=== PATIENT | female | born 1960 | race Two or more races ===

== ENCOUNTER 2018-06-21 11:08 | Emergency (ER) | payer OTHER ==
[2018-06-21 11:17] VITALS: BP 116/66; PULSE 89; TEMP 98.4; BMI 33.2
--- NOTE | 2018-06-21 11:27 | PDOC ---
History of Present Illness - General History Source: Patient - History of Present Illness Timing/Duration: reports: other Location: reports: extremities, torso <Willie Luis - Last Filed: 06/21/18 11:28> <Zeinab Barba - Last Filed: 06/21/18 14:08> - General Chief Complaint: Rash Stated Complaint: ALLERGIC REACTION Time Seen by Provider: 06/21/18 11:21 Past History - Past Medical History Anemia: Yes Asthma: Yes Cancer: No Cardiac Disorders: No CVA: No COPD: No CHF: No Dementia: No Diabetes: No GI Disorders: No Disorders: No HTN: Yes Hypercholesterolemia: No Liver Disease: Yes (cirrhosis w/ esophageal varices) Seizures: No Thyroid Disease: Yes - Surgical History Abdominal Surgery: No Appendectomy: No Cardiac Surgery: No Cholecystectomy: No Lung Surgery: No Neurologic Surgery: No Orthopedic Surgery: No - Suicide/Smoking/Psychosocial Hx Smoking Status: Yes Smoking History: Never smoked Have you smoked in the past 12 months: No Number of Cigarettes Smoked Daily: 0 If you are a former smoker, when did you quit?: Approximately 5 years ago. Cigars Per Day: 0 Hx Alcohol Use: No Drug/Substance Use Hx: No Substance Use Type: None Hx Substance Use Treatment: No <Willie Luis - Last Filed: 06/21/18 11:28> <Zeinab Barba - Last Filed: 06/21/18 14:08> - Past Medical History Allergies/Adverse Reactions: Allergies Allergy/AdvReac Type Severity Reaction Status Date / Time amoxicillin Allergy Rash Verified 06/21/18 13:35 Home Medications: Ambulatory Orders Albuterol 0.083% Nebulizer Meredith [Ventolin 0.083% Nebulizer Soln -] 1 neb NEB Q6H PRN #120 vial 07/23/17 Beclomethasone Dipropionate [Qvar] 1 puff IH BID #1 aer.w.adap 01/21/18 Carboxymethylcellulose Sodium [Lubricant Eye Drop] 1 drop OU PRN #15 drops 01/21 Sodium Chloride [Saline Nasal [place]] 1 - 2 spray NS PRN #1 spray 01/21/18 Ergocalciferol [Vitamin D2] 50,000 unit PO Q7D #4 capsule 02/20/18 Albuterol Sulfate Inhaler - [Ventolin HFA Inhaler -] 1 - 2 inh PO QID PRN #1 inhaler 05/07/18 Albuterol Sulfate Inhaler - [Ventolin Hfa Inhaler -] 2 inh PO Q6H PRN 05/07/18 Eltrombopag Olamine [Promacta] 25 mg PO DAILY 05/07/18 Spironolactone [Aldactone -] 25 mg PO DAILY #30 tablet 05/07/18 Sulfamethoxazole/Trimethoprim [Bactrim Ds -] 1 tab PO WEEKLY 05/07/18 Valacyclovir HCl [Valtrex -] 500 mg PO BID #14 tablet 05/24/18 Bictegrav/Emtricit/Tenofov Ala [Biktarvy 50-200-25 mg Tablet] 1 each PO DAILY # 30 tablet 05/28/18 Amox-Tr/K Cl [Augmentin - 875Mg Tablet] 1 tab PO BID #14 tablet 06/19/18 Fluticasone Prop 0.05% Nasal [Flonase -] 1 - 2 spray NS DAILY #1 spray.pump Loratadine [Claritin -] 10 mg PO Q48H PRN #15 tablet 06/19/18 Azithromycin [Zithromax 250mg Tablets -] 1 tab PO DAILY #6 tab 06/21/18 Loratadine [Claritin] 10 mg PO DAILY #20 tablet 06/21/18 Prednisone [Deltasone] 20 mg PO ASDIR #11 tablet 06/21/18 Review of Systems - Review of Systems Constitutional: No: Chills, Fever HEENTM: No: Throat Swelling Respiratory: No: Shortness of Breath, Wheezing Integumentary: Yes: Pruritus, Rash <Willie Luis - Last Filed: 06/21/18 11:28> *Physical Exam - Vital Signs Last Vital Signs Temp Pulse Resp BP Pulse Ox 98.4 F 89 18 116/66 97 06/21/18 11:12 06/21/18 11:12 06/21/18 11:12 06/21/18 11:12 06/21/18 11:12 - Physical Exam General Appearance: Yes: Appropriately Dressed. No: Apparent Distress HEENT: positive: Normal Voice Neck: positive: Supple. negative: Stridor Respiratory/Chest: negative: Respiratory Distress, Wheezing Integumentary: positive: Dry, Warm, Rash (multiple erythematous papules to trunk and LEs c/w hives) Neurologic: positive: Fully Oriented, Alert, Normal Mood/Affect <Willie Luis - Last Filed: 06/21/18 11:28> - Vital Signs Last Vital Signs Temp Pulse Resp BP Pulse Ox 98.4 F 89 18 116/66 97 06/21/18 11:12 06/21/18 11:12 06/21/18 11:12 06/21/18 11:12 06/21/18 11:12 <Zeinab Barba - Last Filed: 06/21/18 14:08> Moderate Sedation - Procedure Monitoring Vital Signs: Procedure Monitoring Vital Signs Temperature 98.4 F 06/21/18 11:12 Pulse Rate 89 06/21/18 11:12 Respiratory Rate 18 06/21/18 11:12 Blood Pressure 116/66 06/21/18 11:12 O2 Sat by Pulse Oximetry (%) 97 06/21/18 11:12 <Willie Luis - Last Filed: 06/21/18 11:28> - Procedure Monitoring Vital Signs: Procedure Monitoring Vital Signs Temperature 98.4 F 06/21/18 11:12 Pulse Rate 89 06/21/18 11:12 Respiratory Rate 18 06/21/18 11:12 Blood Pressure 116/66 06/21/18 11:12 O2 Sat by Pulse Oximetry (%) 97 06/21/18 11:12 <Zeinab Barba - Last Filed: 06/21/18 14:08> Medical Decision Making - Medical Decision Making 06/21/18 11:35 57-year-old female, history of HIV/AIDS on meds, here with pruritic rash 3 days. Rash located to trunk and lower extremities. Taking benadryl with no relief. Denies any obvious inciting factors and no known environmental drug or food allergies. No shortness of breath, lip or throat swelling. No history of similar rash. No history of anaphylactic See exam Hives No obvious inciting factor per hx No resp sxs Not improving w/ benadryl -dc w/ claritin and prednisone taper -derm f/u as needed <Willie Luis - Last Filed: 06/21/18 11:28> - Medical Decision Making The patient was seen and evaluated in conjunction with midlevel provider under my direct supervision, ancillary studies were reviewed. I agree with the plan as outlined by BLAKE Luis. HPI, workup/dispo as outlined. 06/21/18 14:08 <Zeinab Barba - Last Filed: 06/21/18 14:08> *DC/Admit/Observation/Transfer <Willie Luis - Last Filed: 06/21/18 11:28> <Zeinab Barba - Last Filed: 06/21/18 14:08> Diagnosis at time of Disposition: Hives - Discharge Dispostion Disposition: HOME Condition at time of disposition: Good - Prescriptions Prescriptions: Azithromycin [Zithromax 250mg Tablets -] 1 tab PO DAILY #6 tab Loratadine [Claritin] 10 mg PO DAILY #20 tablet Prednisone [Deltasone] 20 mg PO ASDIR #11 tablet - Referrals Referrals: Hannah Horta MD [Staff Physician] - - Patient Instructions Printed Discharge Instructions: Hives Additional Instructions: Your rash appears to be hives at this time. Take medications as directed. If symptoms persist, please follow-up with Dr. Horta of dermatology
== END 2018-06-21 11:40 | disposition home or self-care (01) ==
LOC: JER 11:08
DX: B20 Human immunodeficiency virus [HIV] disease (principal); L50.9 Urticaria, unspecified; J45.909 Unspecified asthma, uncomplicated; I10 Essential (primary) hypertension; E78.00 Pure hypercholesterolemia, unspecified; K74.60 Unspecified cirrhosis of liver
CPT/HCPCS: 99282-25

== ENCOUNTER 2018-07-16 09:19 | Day surgery (SDC) | payer OTHER ==
[2018-07-16 10:06] VITALS: BMI 33.2
[2018-07-16 10:40] VITALS: TEMP 97.6
[2018-07-16 11:32] VITALS: BP 106/73; PULSE 73
== END 2018-07-16 11:36 | disposition home or self-care (01) ==
LOC: JASU-ENDO 09:19
PROVIDERS: ATTEND Internal Medicine Gastroenterology
PROC: 0DJ08ZZ Inspection of Upper Intestinal Tract, Via Natural or Artificial Opening Endoscopic (ICD-10-PCS; principal; 2018-07-16 10:15)
DX: Z13.810 Encounter for screening for upper gastrointestinal disorder (principal); K74.60 Unspecified cirrhosis of liver; I85.00 Esophageal varices without bleeding; F10.21 Alcohol dependence, in remission; K76.6 Portal hypertension

== ENCOUNTER → 2018-12-04 | Outpatient (CLI) | payer OTHER | LOC: YHH 14:35 ==

== ENCOUNTER 2019-01-02 10:22 | Emergency (ER) | payer OTHER ==
[2019-01-02 10:37] VITALS: TEMP 97.4; BMI 33.2
[2019-01-02] MEDS ORDERED: ONDANSETRON *ODT* 4 MG TABLET SL ONE (11:15)
[2019-01-02] MEDS ORDERED: ACETAMINOPHEN 325 MG TABLET (FP) PO ONE (11:15)
[2019-01-02 11:32] LABS: ALBUMIN 3.5 g/dl (3.4-5.0); BILIRUBIN,TOTAL 1.9 mg/dL (0.2-1); BLOOD UREA NITROGEN 15.5 mg/dL (7-18); CALCIUM 8.8 mg/dL (8.5-10.1); CREATININE 0.9 mg/dL (0.55-1.3); POTASSIUM 3.7 mmol/L (3.5-5.1); TOT PROT 7.4 g/dl (6.4-8.2)
--- NOTE | 2019-01-02 11:36 | PDOC ---
Documentation entered by Ameena Ruiz SCRIBE, acting as scribe for Zeinab Barba MD. Zeinab Barba MD: This documentation has been prepared by the Joseph lind Adrianna, SCRIBE, under my direction and personally reviewed by me in its entirety. I confirm that the documentation accurately reflects all work, treatment, procedures, and medical decision making performed by me. History of Present Illness - General Chief Complaint: Lightheaded Stated Complaint: Syncope/Near Syncope Time Seen by Provider: 01/02/19 10:42 History Source: Patient, Family Exam Limitations: No Limitations - History of Present Illness Initial Comments: 58 y.o. female with HIV (well-controlled, adherent with Biktarvy), Hepatitis C, HTN, asthma, anemia, cirrhosis, varices, and hypothyroid, presenting s/p near syncopal episode. Patient was in the main lobby of [facility] after completing an abdominal MRI when she felt very dizzy and hit the back of her head when she fell back. Patient was NPO since last night for her exam since about midnight, and reported feeling lightheaded and dizzy following her MRI imaging in radiology department. She notes the room began spinning, and she felt like she was going to pass out (patient can recall the event). She presents with a laceration to the back of the head, dressing in place. Patient endorses occipital pain, headache, nausea, and vomit secondary to falling and hitting her head. She denies any other acute complaints at this time. Patient is not on any blood thinners at this time, and is up to date with her tetanus vaccination. Denies fever, chills, chest pain, SOB, palpitation,weakness, diarrhea, abdominal pain, bladder and bowel problems, leg swelling, paresthesias, leg pain. Allergies: Amoxicillin Past Medical History/PSH: HIV, Hepatitis C, HTN, asthma, anemia Social history: Lives with family. Former smoker (quit 5 years ago). No ETOH or drug use. Meds: as documented in EMR Family history: noncontributory 01/02/19 11:35 Past History - Past Medical History Allergies/Adverse Reactions: Allergies Allergy/AdvReac Type Severity Reaction Status Date / Time amoxicillin Allergy Rash Verified 06/21/18 13:35 Home Medications: Ambulatory Orders Eltrombopag Olamine [Promacta] 50 mg PO DAILY 08/05/18 Guaifenesin Dm [Robitussin Dm -] 10 ml PO Q4H PRN #240 ml 09/20/18 Albuterol 0.083% Nebulizer Meredith [Ventolin 0.083% Nebulizer Soln -] 1 neb NEB Q6H PRN #120 amp 12/24/18 Beclomethasone Dipropionate [Qvar] 1 puff IH BID #1 aer.w.adap 12/24/18 Bictegrav/Emtricit/Tenofov Ala [Biktarvy 50-200-25 mg Tablet] 1 each PO DAILY # 30 tablet 12/24/18 Carboxymethylcellulose Sodium [Thera Tears] 1 - 2 drop OU PRN #15 ml 12/24/18 Cholecalciferol (Vitamin D3) [Vitamin D3] 2,000 unit PO DAILY #30 capsule Fluticasone Prop 0.05% Nasal [Flonase -] 1 - 2 spray NS DAILY #1 spray.pump Furosemide 20 mg PO DAILY #30 tablet 12/24/18 Ketotifen Fumarate [Zaditor] 1 drop OU BID #5 ml 12/24/18 Loratadine [Claritin -] 10 mg PO Q2D #15 tablet 12/24/18 Multivitamin,Ther and Minerals [Vitamin and Minerals] 1 each PO DAILY #30 tablet 12/24/18 Sodium Chloride [Saline Nasal [place]] 1 - 2 spray NS PRN #1 spray 12/24/18 Spironolactone [Aldactone -] 25 mg PO DAILY #30 tablet 12/24/18 Sulfamethoxazole/Trimethoprim [Bactrim Ds -] 1 tab PO WEEKLY #12 tablet Anemia: Yes Asthma: Yes Cancer: No Cardiac Disorders: No CVA: No COPD: No CHF: No Dementia: No Diabetes: No GI Disorders: Yes (HEP C) Disorders: No HTN: Yes Hypercholesterolemia: No Liver Disease: Yes (H/O VARICES, HCV CIRRHOSIS) Seizures: No Thyroid Disease: Yes - Surgical History Abdominal Surgery: No Appendectomy: No Cardiac Surgery: No Cholecystectomy: No Lung Surgery: No Neurologic Surgery: No Orthopedic Surgery: No - Psycho Social/Smoking Cessation Hx Smoking Status: Yes Smoking History: Former smoker Have you smoked in the past 12 months: No Number of Cigarettes Smoked Daily: 0 If you are a former smoker, when did you quit?: Approximately 5 years ago. Cigars Per Day: 0 Information on smoking cessation initiated: No Hx Alcohol Use: No Drug/Substance Use Hx: No Substance Use Type: None Hx Substance Use Treatment: No Review of Systems - Review of Systems Comments:: Constitutional: no fevers or chills. No weakness HEENT: +Occipital pain. +Headache. +Dizziness. +Lightheadedness. No congestion. No visual/hearing disturbances. CVS: no chest pain, no palpitations. Resp: no sob. No cough. Gastrointestinal: +Nausea. +Vomit. no abdominal pain. Genitourinary: no urinary sx, hematuria. MUSCULOSKELETAL: No joint pain and swelling. No neck or back pain. SKIN: no redness or skin changes, no discharge, no rash. +scalp wound/laceration Hematologic: no easy bruising/bleeding. NEUROLOGIC: +Headache. +Dizziness. +Lightheadedness. +Occipital pain/headache. No altered mental status. No weakness, numbness or tingling. Psych: no anxiety or depression Allergic/Immunologic: no allergies All other systems reviewed and negative, or as documented in HPI. 01/02/19 11:37 01/02/19 11:37 *Physical Exam - Vital Signs Last Vital Signs Temp Pulse Resp BP Pulse Ox 97.4 F L 89 20 127/81 97 01/02/19 10:31 01/02/19 10:31 01/02/19 10:31 01/02/19 10:31 01/02/19 10:31 - Physical Exam Comments: General: GCS 15 NAD, well appearing HEENT: normocephalic, +occipital scalp laceration measuring 3cm, contused tissue and irregular PERRL, EOMI. Airway intact. No battles sign or raccoon eyes. No e/o ocular. Dentition intact. No e/o septal hematoma, nasal bridge stable. Neck: neck supple, no midline C spine tenderness or deformity, ROM intact. No anterior mass or crepitus, trachea midline. Resp: Lungs clear bilaterally Chest: no clavicle or chest wall tenderness or crepitus CVS: RRR, 2+ pulses throughout. Abdomen: Abdomen soft, nontender, nondistended. Back: Back nontender, no midline spinal tenderness along cervical/thoracic/ lumbar spine, FROM, no stepoffs. MSK: Pelvis stable, Extremities symmetric, no focal areas of tenderness or deformities, proximal and distally; no pain on axial loading. FROM in all extrem. Neuro: Alert, oriented appropriately. CN II-XII grossly symmetric and intact. no focal neuro deficits. Sensation and strength intact throughout. Gait normal/ stable. Skin: intact, normal color and well perfused. 01/02/19 11:38 01/02/19 12:23 Procedures - Laceration/Wound Repair Occipital Wound Length: 2.6 to 5.0 cm Wound Explored: clean Wound's Depth, Shape: irregular, contused tissue Irrigated w/ Saline: Yes Betadine Prep: No Anesthesia: 1% Lidocaine Amount of Anesthetic (ccs): 4 Wound Debrided: minimal Wound Repaired With: [place] Number of Sutures: 5 Layer Closure: No Sterile Dressing Applied: No Progress: 01/02/19 12:21 uncomplicated, bleeding controlled Heart Score/ECG Review #1 ECG reviewed & interpreted by me at: 10:45 General ECG Interpretation: Sinus Rhythm, Normal Rate, Normal Intervals 01/02/19 11:37 nonspecific T wave abnormalities ED Treatment Course - LABORATORY CBC & Chemistry Diagram: 01/02/19 11:00 01/02/19 11:00 - ADDITIONAL ORDERS Additional order review: Laboratory Results 01/02/19 11:00 Sodium 143 Potassium 3.7 Chloride 110 H Carbon Dioxide 24 Anion Gap 9 BUN 15.5 Creatinine 0.9 Est GFR (CKD-EPI)AfAm 82.84 Est GFR (CKD-EPI)NonAf 71.48 Random Glucose 118 H Calcium 8.8 Total Bilirubin 1.9 H AST 39 H ALT 24 Alkaline Phosphatase 112 Total Protein 7.4 Albumin 3.5 - RADIOLOGY Radiology Studies Ordered: Category Date Time Status HEAD CT WITHOUT CONTRAST [CT] Stat CT Scan 01/02/19 10:46 Taken Radiograph Interpretation: EXAM#: TYPE/EXAM: RESULT: [id number] CT/HEAD CT WITHOUT CONTRAST Status post injury. Impression: [id number] volume loss without gross CT evidence of acute intracranial pathology. Correlate clinically to determine further evaluation and follow-up. Reported By: Maldonado De La Vega MD 01/02/19 11:50 Medical Decision Making - Medical Decision Making 01/02/19 11:38 Vital Signs Temp Pulse Resp BP Pulse Ox 97.4 F L 89 20 127/81 97 01/02/19 10:31 01/02/19 10:31 01/02/19 10:31 01/02/19 10:31 01/02/19 10:31 vitals reviewed, wnl GCS [address] head_neg for intracranial bleed/skull fx. no midline tenderness,nexus clear no indication for imaging no syncope, EKG unremarkable, nonspecific T wave abnormalities, NSR labs and lytes at baseline, unremarkable, baseline with leukopenia and controlled HIV/CD4 count. tdap is up to date scalp laceration fixed. 5 karyna uncomplicated, bleeding controlled wound care instructions, care, ice the area of swelling supportive care staple removal in 7 days. 01/02/19 11:38 01/02/19 12:22 Discharge - Discharge Information Problems reviewed: Yes Clinical Impression/Diagnosis: Closed head injury Qualifiers: Encounter type: initial encounter Qualified Code(s): S09.90XA - Unspecified injury of head, initial encounter Scalp laceration Qualifiers: Encounter type: initial encounter Qualified Code(s): S01.01XA - Laceration without foreign body of scalp, initial encounter Scalp hematoma Qualifiers: Encounter type: initial encounter Qualified Code(s): S00.03XA - Contusion of scalp, initial encounter Condition: Improved Disposition: HOME - Admission No - Follow up/Referral Referrals: Merline Mcclain, GLASS CRUSHER [Nurse Practitioner] - Emergency Dept,Physician, MD [Emergency Physician] - - Patient Discharge Instructions Patient Printed Discharge Instructions: DI for Laceration Repair of the Scalp, DI for Closed Head Injury Additional Instructions: CT head was negative for internal bleeding or mass labs are within normal limits for you. Wound dressed with topical Bacitracin and sterile gauze. Follow up with your primary care doctor within 48-72 hours for a wound check. Keep karyna covered and dry for 24 hours then clean with soap and water daily - do not scrub. Apply bacitracin or neosporin twice a day with warm soaks and cover with gauze/ dressings. Return to ED for staple removal 7 days. Return to the ED for any worsening pain, redness, streaking (red lines), swelling, fever or chills. Keep the wound clean and as dry as possible, you can also ice the area to reduce swelling. Do not immerse or soak the wound in water. This means no swimming, washing dishes (unless thick rubber gloves are used), baths, or hot tubs until the stitches are removed or after about two weeks if absorbable suture material was used. Leave original bandages on the wound for the first 24 hours. After this time, showering or rinsing is recommended, rather than bathing. the first day, remove old bandages and gently cleanse the wound with soap and water. Cleansing twice a day prevents buildup of debris and will result in easier suture removal. - Post Discharge Activity
[2019-01-02] MEDS ORDERED: ONDANSETRON *ODT* 4 MG TABLET ONE (11:39)
[2019-01-02] MEDS ORDERED: ACETAMINOPHEN 325 MG TABLET (FP) ONE (11:39)
[2019-01-02 12:17] LABS: BASO % 0.7 % (0-2.0); EOS % 3.9 % (0-4.5); HEMATOCRIT 45.6 % (32.4-45.2); HEMOGLOBIN 15.3 GM/dL (10.7-15.3); LYMPH % 39.3 % (8-40); MCH 31.9 pg (25.7-33.7); MCHC 33.6 g/dl (32.0-36.0); MEAN PLT VOLUME 8.8 fl (7.5-11.1); MONO % 7.3 % (3.8-10.2); NEUT % 48.8 % (42.8-82.8); PLATELET COUNT 131 K/MM3 (134-434); RDW 14.7 % (11.6-15.6); WHITE BLOOD COUNT 3.4 K/mm3 (4.0-10.0)
[2019-01-02 12:46] VITALS: BP 118/83; PULSE 75
--- NOTE | 2019-01-02 14:32 | EKG ---
Test Reason : Blood Pressure : / mmHG Vent. Rate : 086 BPM Atrial Rate : 086 BPM P-R Int : 148 ms QRS Dur : 088 ms QT Int : 424 ms P-R-T Axes : 047 029 045 degrees QTc Int : 507 ms POOR DATA QUALITY, INTERPRETATION MAY BE ADVERSELY AFFECTED NORMAL SINUS RHYTHM NORMAL ECG WHEN COMPARED WITH ECG OF 20-AUG-2018 12:43, NO SIGNIFICANT CHANGE WAS FOUND Confirmed by EMMANUEL MARIE, RUBIN ([id number]) on 01/02/2019 2:31:57 PM Referred By: Confirmed By:RUBIN BENITEZ MD
== END 2019-01-02 12:46 | disposition home or self-care (01) ==
LOC: JER 10:22
PROC: 0HQ0XZZ Repair Scalp Skin, External Approach (ICD-10-PCS; principal; 2019-01-02)
DX: S01.01XA Laceration without foreign body of scalp, initial encounter (principal); S09.90XA Unspecified injury of head, initial encounter; X58.XXXA Exposure to other specified factors, initial encounter; Y93.89 Activity, other specified; Y92.89 Other specified places as the place of occurrence of the external cause; Z88.8 Allergy status to other drugs, medicaments and biological substances; Z87.891 Personal history of nicotine dependence; B19.20 Unspecified viral hepatitis C without hepatic coma; I10 Essential (primary) hypertension; I83.90 Asymptomatic varicose veins of unspecified lower extremity; J45.909 Unspecified asthma, uncomplicated; D64.9 Anemia, unspecified
CPT/HCPCS: 36415; 70450-TC; 80053; 85025; 93005; 93010; 99283-25; Q0162

== ENCOUNTER 2019-01-09 06:40 | Emergency (ER) | payer OTHER ==
[2019-01-09 07:23] VITALS: BP 123/72; PULSE 70; TEMP 98.5; BMI 33.2
--- NOTE | 2019-01-09 07:40 | PDOC ---
Suture Removal/Wound Check HPI - History of Present Illness History Source: Yes: Patient Exam Limitations: Yes: Clinical Condition Treated at: [facility] ED <Dario Morataya - Last Filed: 01/09/19 08:02> <Randy Perez - Last Filed: 01/09/19 14:30> - History of Present Illness Chief Complaint: Suture/Staple Removal(Here) Stated Complaint: STAPLE REMOVAL Time Seen by Provider: 01/09/19 07:26 Past History - Past Medical History Anemia: Yes Asthma: Yes Cancer: No Cardiac Disorders: No CVA: No COPD: No CHF: No Dementia: No Diabetes: No GI Disorders: Yes (HEP C) Disorders: No HTN: Yes Hypercholesterolemia: No Liver Disease: Yes (H/O VARICES, HCV CIRRHOSIS) Seizures: No Thyroid Disease: Yes - Surgical History Abdominal Surgery: No Appendectomy: No Cardiac Surgery: No Cholecystectomy: No Lung Surgery: No Neurologic Surgery: No Orthopedic Surgery: No - Immunization History Immunization Up to Date: No - Psycho Social/Smoking Cessation Hx Smoking Status: Yes Smoking History: Never smoked Have you smoked in the past 12 months: No Number of Cigarettes Smoked Daily: 0 If you are a former smoker, when did you quit?: Approximately 5 years ago. Cigars Per Day: 0 Information on smoking cessation initiated: No Hx Alcohol Use: No Drug/Substance Use Hx: No Substance Use Type: None Hx Substance Use Treatment: No <Dario Morataya - Last Filed: 01/09/19 08:02> <Randy Perez - Last Filed: 01/09/19 14:30> - Past Medical History Allergies/Adverse Reactions: Allergies Allergy/AdvReac Type Severity Reaction Status Date / Time amoxicillin Allergy Rash Verified 01/09/19 07:20 Home Medications: Ambulatory Orders Eltrombopag Olamine [Promacta] 50 mg PO DAILY 08/05/18 Guaifenesin Dm [Robitussin Dm -] 10 ml PO Q4H PRN #240 ml 09/20/18 Albuterol 0.083% Nebulizer Meredith [Ventolin 0.083% Nebulizer Soln -] 1 neb NEB Q6H PRN #120 amp 12/24/18 Beclomethasone Dipropionate [Qvar] 1 puff IH BID #1 aer.w.adap 12/24/18 Bictegrav/Emtricit/Tenofov Ala [Biktarvy 50-200-25 mg Tablet] 1 each PO DAILY # 30 tablet 12/24/18 Carboxymethylcellulose Sodium [Thera Tears] 1 - 2 drop OU PRN #15 ml 12/24/18 Cholecalciferol (Vitamin D3) [Vitamin D3] 2,000 unit PO DAILY #30 capsule Fluticasone Prop 0.05% Nasal [Flonase -] 1 - 2 spray NS DAILY #1 spray.pump Furosemide 20 mg PO DAILY #30 tablet 12/24/18 Ketotifen Fumarate [Zaditor] 1 drop OU BID #5 ml 12/24/18 Loratadine [Claritin -] 10 mg PO Q2D #15 tablet 12/24/18 Multivitamin,Ther and Minerals [Vitamin and Minerals] 1 each PO DAILY #30 tablet 12/24/18 Sodium Chloride [Saline Nasal [place]] 1 - 2 spray NS PRN #1 spray 12/24/18 Spironolactone [Aldactone -] 25 mg PO DAILY #30 tablet 12/24/18 Sulfamethoxazole/Trimethoprim [Bactrim Ds -] 1 tab PO WEEKLY #12 tablet Suture Removal/Wound Check PE - Physical Exam Laceration/Wound Check Symptoms: reports: None. denies: Fever, Chills, Redness , Bleeding, Weakness Pain Intensity: 0 Current Severity Level: None Location of Laceration/Wound: left: Head <Dario Morataya - Last Filed: 01/09/19 08:02> *Review of Systems - Review of Systems Able to Perform ROS?: Yes Constitutional: No: Fever, Malaise, Weakness HEENTM: No: Symptoms Reported Respiratory: No: Symptoms reported Cardiac (ROS): No: Symptoms Reported, See HPI, Chest Pain, Edema, Irregular Heart Rate, Lightheadedness, Palpitations, Syncope, Chest Tightness, Other ABD/GI: No: Nausea, Vomiting Integumentary: Yes: Symptoms Reported, Other (laceration to scalp with karyna in place) Neurological: No: Symptoms reported, Headache, Numbness, Paresthesia, Pre- Existing Deficit, Unsteady Gait, Ataxia, Dizziness All Other Systems: Reviewed and Negative <Dario Morataya - Last Filed: 01/09/19 08:02> *Physical Exam - Vital Signs Last Vital Signs Temp Pulse Resp BP Pulse Ox 98.5 F 70 16 123/72 99 01/09/19 07:20 01/09/19 07:20 01/09/19 07:20 01/09/19 07:20 01/09/19 07:20 - Physical Exam General Appearance: Yes: Nourished, Appropriately Dressed. No: Apparent Distress HEENT: positive: Normal ENT Inspection, Pharynx Normal, Other (2cm well healed laceration to left side of occiput with [address]) Neck: positive: Supple Respiratory/Chest: positive: Lungs Clear, Normal Breath Sounds. negative: Respiratory Distress, Accessory Muscle Use Cardiovascular: positive: Regular Rhythm, Regular Rate Musculoskeletal: positive: Normal Inspection Integumentary: positive: Normal Color, Other (2cm well healing laceration with [address] no erythema or wound dehiscense. no drainage from wound site. No evidence of infection) Neurologic: positive: surgical coordinator II-XII NML intact, Fully Oriented, Alert, Normal Mood/ Affect, Normal Response <Dario Morataya - Last Filed: 01/09/19 08:02> - Vital Signs Last Vital Signs Temp Pulse Resp BP Pulse Ox 98.5 F 70 16 123/72 99 01/09/19 07:20 01/09/19 07:20 01/09/19 07:20 01/09/19 07:20 01/09/19 07:20 <Randy Perez - Last Filed: 01/09/19 14:30> Medical Decision Making - Medical Decision Making 01/09/19 08:06 Patient with no significant past medical history presents for staple removal status post fall a week ago causing laceration to left side of occiput of head requiring staple placement. Patient felt dizzy a week ago while working history and feel hitting her head causing laceration. Head CT done last week showed no acute intracranial bleeding. Patient reported no more fall or dizziness from last visit. Denies headache, nausea, vomiting, fever, chills, lightheadedness, blurry vision or change in vision. Denies any other symptoms Exam significant for well-healed 2 cm laceration with [address] No redness or wound dehiscence. No drainage from wound site no evidence of wound infection. Bliss removed with staple removal kit without complication. Bacitracin applied to wound. Patient educated on continuous wound care with bacitracin twice a day until wound is healed. Patient stable for discharge <Dario Morataya - Last Filed: 01/09/19 08:02> - Medical Decision Making 01/09/19 14:30 I reviewed the case of the mid-level practitioner and was available for consultation while in the emergency department <Randy Perez - Last Filed: 01/09/19 14:30> Discharge - Discharge Information Problems reviewed: Yes - Admission No <Dario Morataya - Last Filed: 01/09/19 08:02> <Randy Perez - Last Filed: 01/09/19 14:30> - Discharge Information Clinical Impression/Diagnosis: Encounter for removal of karyna Condition: Stable Disposition: HOME - Patient Discharge Instructions Patient Printed Discharge Instructions: How to Care for a Surgical Wound- Bliss Additional Instructions: Continue bacitracin to wound twice a day until healed. Take Tylenol as needed for pain. Follow-up with department as needed
== END 2019-01-09 07:50 | disposition home or self-care (01) ==
LOC: JER 06:40
DX: Z48.02 Encounter for removal of sutures (principal); Z88.8 Allergy status to other drugs, medicaments and biological substances
CPT/HCPCS: 99281-25